=== PATIENT | male | born 1940 | race Caucasian/White ===

== ENCOUNTER → 2017-05-13 | Outpatient (CLI) | payer OTHER ==
[~2017-05-13] MED LIST: ACIPHEX20 MG PO; DIATRIZOATE MEGL/DIATRIZOA SOD 30 ML BTL PO ONE; IOPAMIDOL 370 MG/ML 200 ML INFUS..BTL INJ ONE; LIBRAX CAPSULE1 EACH PO; LISINOPRIL30 MG PO; LUPRON DEPOT45 MG INJ; METRONIDAZOLE500 MG PO; REGLAN10 MG PO; SODIUM CHLORIDE 0.9% 50ML 50 ML ONE; VSL#3 CAPSULE1 EACH PO
[2017-05-13 12:21] LABS: BLOOD UREA NITROGEN 11 mg/dL (7-26); BUN/CREATININE RATIO 13 (6-25); CREATININE, SERUM 0.84 mg/dL (0.72-1.25); EST GLOMERULAR FILTRATION RATE > 60 ML/MIN (60-)
--- NOTE | 2017-05-13 13:27 | Diagnostic Imaging Report ---
PROCEDURE:CT ABDOMEN AND PELVIS WITH CONTRAST COMPARISON:None. INDICATIONS:Hiatal hernia; umbilical hernia repair with mesh. Diverticulitis. TECHNIQUE: Routine protocol Volumetric CT abdomen and pelvis after administration of 100 mL Isovue-370 intravenous contrast 900 mL dilute positive enteric contrast. Multiplanar reformatted images. DLP: 770.59 FINDINGS: Clear lung bases. No pleural effusions. Normal heart size. Liver: Diffuse low-attenuation; mid clavicular craniocaudal span 14.3 cm. Gallbladder: Cholecystectomy. The bile duct dilation. Pancreas: Normal Spleen: Normal Adrenal glands: Normal Kidneys: Low-attenuation cysts bilaterally, the largest on the right measuring 2 cm in diameter and on the left 2.1 cm. Otherwise, normal Ureters and urinary bladder: Normal Prostate seminal vesicles: Prostate brachytherapy seeds. Bowel: Normal caliber. Small sliding-type hiatal hernia. Normal appendix. Normal sigmoid. Peritoneum: Normal Vasculature: Normal caliber. Moderate atherosclerosis of the abdominal aorta with mild calcification of the common iliac arteries. Lymph nodes: Normal Skeleton: Intact. Multilevel degenerative disc disease, most notable at L5-S1 L5-S1 with near complete loss of disc space height. Soft tissues: Unremarkable. CONCLUSION: 1. Hepatic steatosis. 2. No evidence of diverticulosis/diverticulitis. 3. Small sliding-type hiatal hernia. Dictated by: Shyam Francisco M.D. on 05/13/2017 at 13:36 Electronically approved by: Shyam Francisco M.D. on 05/13/2017 at 13:36
== END ==
LOC: CT 11:24
PROVIDERS: ATTEND Internal Medicine Gastroenterology
DX: R10.32 Left lower quadrant pain (principal)
CPT/HCPCS: 36415; 74177; 82565; 84520; Q9967

== ENCOUNTER → 2017-08-25 | Outpatient (CLI) | payer OTHER ==
[~2017-08-25] MED LIST changes: -DIATRIZOATE MEGL/DIATRIZOA SOD 30 ML BTL PO ONE; -IOPAMIDOL 370 MG/ML 200 ML INFUS..BTL INJ ONE; -SODIUM CHLORIDE 0.9% 50ML 50 ML ONE
--- NOTE | 2017-08-25 09:23 | Diagnostic Imaging Report ---
TECHNIQUE: Magnetic resonance imaging of the right femur was performed WITHOUT injected contrast. HISTORY: Pain COMPARISON: None available. FINDINGS: Bone marrow signal normal. No edema, fracture, or osteonecrosis. Muscle signal normal. No edema or atrophy. No soft tissue mass. Normal appearance of the sciatic nerve. IMPRESSION: Unremarkable MRI of the right femur/thigh. Signed by: Dr. Mejia Boothe M.D. on 08/25/2017 9:19 AM
== END ==
LOC: MRI 07:11
PROVIDERS: ATTEND Specialist
DX: M79.604 Pain in right leg (principal)

== ENCOUNTER → 2018-09-15 | Outpatient (CLI) | payer OTHER ==
--- NOTE | 2018-09-15 18:25 | Diagnostic Imaging Report ---
Bone Scan, delayed phase INDICATION: Prostate cancer diagnosed in 2015. Low back pain. COMPARISON: Prior bone scan 03/21/2017 REPORT: Approximately 3 hours following intravenous administration of 25 mCi of Tc-99m MDP, delayed total body images in the anterior and posterior projections and selected spot images were obtained. Few foci of very mildly increased tracer are seen in the cervical and thoracic spine, consistent with degenerative change and unchanged from prior study of 03/21/2017. New focus of moderate to markedly increased tracer is seen in the midline of L5. Otherwise, distribution of tracer activity is unremarkable throughout the skeletal system. No abnormal accumulation of tracer is seen in the soft tissues or urinary tract. IMPRESSION: New acute osteoblastic lesion in the midline of L5 is nonspecific in appearance and could be due to a posttraumatic, inflammatory (degenerative) or neoplastic process. Absence of the lesion on the prior bone scan slightly favors solitary bone metastasis but correlation with CT is indicated. Signed by: Dr. Lillie Patterson M.D. on 09/15/2018 6:21 PM
== END ==
LOC: NM 07:56
PROVIDERS: ATTEND Family Medicine
DX: Z85.46 Personal history of malignant neoplasm of prostate (principal)
CPT/HCPCS: 78306; A9503

== ENCOUNTER → 2019-02-13 | Outpatient (CLI) | payer OTHER ==
--- NOTE | 2019-02-13 09:43 | Diagnostic Imaging Report ---
MRI of the right shoulder without contrast. History: Shoulder pain. Decreased range of motion. Pain not responding to conservative management Comparison: None Technique: Coronal PD FS, sagital PD FS, and axial PD and PD FS. Findings: Rotator cuff: Rotator cuff tendinosis with small full-thickness tear involving the anterior fibers of the supraspinatus tendon at the humeral insertion site. There is minimal retraction of the torn fibers and mild supraspinatus muscle atrophy. Additionally, there is infraspinatus and subscapularis tendinosis. The teres minor tendon is intact. Osseous acromion complex: Type II acromion with mild lateral downsloping. Moderate degenerative arthrosis at the acromioclavicular joint with undersurface spurring and narrowing of the supraspinatus tendon outlet. Mild subacromial/subdeltoid bursitis. Glenohumeral joint: Degeneration and fraying of the labrum. The articular cartilage surfaces are slightly thin. The humeral head is well-seated in the glenoid fossa. Small effusion and mild synovitis in the rotator interval and subcoracoid space. Biceps tendon: Intra-articular biceps tendinosis with fraying at the biceps anchor. Other findings: Negative for muscle denervation or osseous fracture. Impression: Rotator cuff: Rotator cuff tendinosis with small full-thickness tear involving the anterior fibers of the supraspinatus tendon at the humeral insertion site. There is minimal retraction of the torn fibers and mild supraspinatus muscle atrophy. Moderate degenerative arthrosis at the acromioclavicular joint with undersurface spurring and narrowing of the supraspinatus tendon outlet. Mild subacromial/subdeltoid bursitis. Intra-articular biceps tendinosis with fraying at the biceps anchor. Signed by: Dr. Toney Doll M.D. on 02/13/2019 9:39 AM
== END ==
LOC: MRI 07:42
PROVIDERS: ATTEND Family Medicine
DX: M25.511 Pain in right shoulder (principal); M54.5 Low back pain

== ENCOUNTER → 2019-03-30 | Outpatient (CLI) | payer OTHER ==
--- NOTE | 2019-03-30 13:38 | Diagnostic Imaging Report ---
Examination: MRI SPINE LUMBAR WO CONTRAST History: Low back pain radiating to mid back and front of the right lower extremity with associated numbness of the foot. Comparison studies: Lumbar spine MRI performed May 02, 2017. Technique: Sagittal, coronal and axial T2 , sagittal T1 and STIR; axial spin density oblique. Findings: Number of lumbar vertebral bodies: Five. Alignment: Normal lordosis. No scoliosis. Soft tissues: In the bilateral kidneys, there are T2 hyperintense lesions, representing cysts. The largest is seen in the the mid to lower pole of the right kidney and measures 2.5 cm. Posterior paraspinal soft tissues and muscles: No abnormality. Lower thoracic cord: Normal in signal and morphology. The tip of the conus is at L1. Cauda equina: No masses. No arachnoiditis. Vertebrae: No fractures, infection or neoplasm. Type II Modic changes of the superior and inferior endplates of L2, L3, L4 and L5 with complete fatty marrow replacement of the sacrum. Degenerative changes: L1-L2: No abnormalities. L2-L3: Asymmetric to the left disc bulge and mild bilateral facet arthropathy result in mild bilateral neural foraminal narrowing and mild canal stenosis. L3-L4: Diffuse disc bulge, mild ligamentum flavum thickening and mild bilateral facet arthropathy result in mild bilateral neural foraminal narrowing and severe canal stenosis. L4-L5: Prior right laminotomy. Diffuse disc bulge and mild bilateral facet arthropathy result in moderate right and mild left neural foraminal narrowing. No canal stenosis. L5-S1: Diffuse disc bulge and mild bilateral facet arthropathy result in mild bilateral neural foraminal narrowing. No canal stenosis. IMPRESSION: Degenerative changes from L2-L3 through L5-S1 with interval right decompressive laminectomy at L4-L5 when compared to prior lumbar spine MRI performed May 02, 2017. Interval progression of degenerative canal stenosis at L3-L4, now severe. Mild canal stenosis at L2-L3. Signed by: Dr. Rashmi Romero M.D. on 03/30/2019 1:35 PM
== END ==
LOC: MRI 07:40
PROVIDERS: ATTEND Family Medicine
DX: M54.5 Low back pain (principal)
CPT/HCPCS: 72148

== ENCOUNTER 2019-07-13 08:46 | Emergency (ER) | payer OTHER ==
[~2019-07-13] VITALS: Ht 185.4 cm; Wt 116.1 kg
--- OUTSIDE RECORDS SUMMARY | 2019-07-13 08:49 | XMS REPORT ---
[facility] Address Unknown Phone Unavailable Care Team Providers Care Clinical Engineering Director Name Role Phone FER HORNER Unavailable Unavailable JHON HORNER Unavailable Unavailable Randee RECINOS Unavailable Unavailable PRETTY FULLER Unavailable Unavailable Viraj SOTO Unavailable Unavailable Problems This patient has no known problems. Allergies, Adverse Reactions, Alerts This patient has no known allergies or adverse reactions. Medications This patient has no known medications. Results Test Description Test Time Test Comments Text Results Atomic Results Result Comments MRI SPINE LUMBAR WO 2019-03-30 13:27:00 [place] [address] Patient Name: JL BRAR MR #: [id number] : 1940 Age/Sex: 78/M Req #: [id number] Adm Physician: Ordered by: FER HORNER DO Report #: [id number] Location: MRI Room/Bed: Procedure: [id number] MRI/MRI SPINE LUMBAR WO Exam Date: Exam Time: REPORT STATUS: Signed Examination: MRI SPINE LUMBAR WO CONTRAST History: Low back pain radiating to mid back and front of the right lower extremity with associated numbness of the foot. Comparison studies: Lumbar spine MRI performed May 02, 2017. Technique: Sagittal, coronal and axial T2 , sagittal T1 and STIR; axial spin density oblique. Findings: Number of lumbar vertebral bodies: Five. Alignment: Normal lordosis. No scoliosis. Soft tissues: In the bilateral kidneys, there are T2 hyperintense lesions, representing cysts. The largest is seen in the the mid to lower pole of the right kidney and measures 2.5 cm. Posterior paraspinal soft tissues and muscles: No abnormality. Lower thoracic cord: Normal in signal and morphology. The tip of the conus is at L1. Cauda equina: No masses. No arachnoiditis. Vertebrae: No fractures, infection or neoplasm. Type II Modic changes of the superior and inferior endplates of L2, L3, L4 and L5 with complete fatty marrow replacement of the sacrum. Degenerative changes: L1-L2: No abnormalities. L2-L3: Asymmetric to the left disc bulge and mild bilateral facet arthropathy result in mild bilateral neural foraminal narrowing and mild canal stenosis. L3-L4: Diffuse disc bulge, mild ligamentum flavum thickening and mild bilateral facet arthropathy result in mild bilateral neural foraminal narrowing and severe canal stenosis. L4- L5: Prior right laminotomy. Diffuse disc bulge and mild bilateral facet arthropathy result in moderate right and mild left neural foraminal narrowing. No canal stenosis. L5-S1: Diffuse disc bulge and mild bilateral facet arthropathy result in mild bilateral neural foraminal narrowing. No canal stenosis. IMPRESSION: Degenerative changes from L2-L3 through L5-S1 with interval right decompressive laminectomy at L4-L5 when compared to prior lumbar spine MRI performed May 02, 2017. Interval progression of degenerative canal stenosis at L3-L4, now severe. Mild canal stenosis at L2-L3. Signed by: Dr. Beto Romero M.D. on 03/30/2019 1:35 PM Dictated By: BETO MAYS MD 133 Transcribed By: JOSE on 03/30/19 1334 COPY TO: FER HORNER DO MRI SHOULDER RIGHT WO 2019-02-13 09:36:[address] [address] Patient Name: JL BRAR MR #: [id number] : 1940 Age/Sex: 78/M Req #: [id number] Adm Physician: Ordered by: FER HORNER DO Report #: [id number] Location: MRI Room/Bed: Procedure: [id number] MRI/MRI SHOULDER RIGHT WO Exam Date: Exam Time: REPORT STATUS: Signed MRI of the right shoulder without contrast. History: Shoulder pain. Decreased range of motion. Pain not responding to conservative management Comparison: None Technique: Coronal PD FS, sagital PD FS, and axial PD and PD FS. Findings: Rotator cuff: Rotator cuff tendinosis with small full-thickness tear involving the anterior fibers of the supraspinatus tendon at the humeral insertion site. There is minimal retraction of the torn fibers and mild supraspinatus muscle atrophy. Additionally, there is infraspinatus and subscapularis tendinosis. The teres minor tendon is intact. Osseous acromion complex: Type II acromion with mild lateral downsloping. Moderate degenerative arthrosis at the acromioclavicular joint with undersurface spurring and narrowing of the supraspinatus tendon outlet. Mild subacromial/subdeltoid bursitis. Glenohumeral joint: Degeneration and fraying of the labrum. The articular cartilage surfaces are slightly thin. The humeral head is well-seated in the glenoid fossa. Small effusion and mild synovitis in the rotator interval and subcoracoid space. Biceps tendon: Intra-articular biceps tendinosis with fraying at the biceps anchor. Other findings: Negative for muscle dener vation or osseous fracture. Impression: Rotator cuff: Rotator cuff tendinosis with small full-thickness tear involving the anterior fibers of the supraspinatus tendon at the humeral insertion site. There is minimal retraction of the torn fibers and mild supraspinatus muscle atrophy. Moderate degenerative arthrosis at the acromioclavicular joint with undersurface spurring and narrowing of the supraspinatus tendon outlet. Mild subacromial/subdeltoid bursitis. Intra-articular biceps tendinosis with fraying at the biceps anchor. Signed by: Dr. Joleen Doll M.D. on 9:39 AM Dictated By: JOLEEN DOLL MD, MD 8 Transcribed By: JOSE on 02/13/19938 COPY TO: FER HORNER DO BONE and/or JOINT WHOLE BODY 2018-09-15 18:14:00 [place] [address] Patient Name: JL BRAR MR #: [id number] : 1940 Age/Sex: 78/M Req #: [id number] Adm Physician: Ordered by: HORNER ANDREW DO Report #: [id number] Location: [place] Room/Bed: Procedure: [id number] NM/BONE and/or JOINT WHOLE BODY Exam Date: 09/15/18 Exam Time: 0840 REPORT STATUS: Signed Bone Scan, delayed phase INDICATION: Prostate cancer diagnosed in 2014. Low back pain. COMPARISON: Prior bone scan 03/21/2017 REPORT: Approximately 3 hours following intravenous administration of 25 mCi of Tc-99m MDP, delayed total body images in the anterior and posterior projections and selected spot images were obtained. Few foci of very mildly increased tracer are seen in the cervical and thoracic spine, consistent with degenerative change and unchanged from prior study of 03/21/2017. New focus of moderate to markedly increased tracer is seen in the midline of L5. Otherwise, distribution of tracer activity is unremarkable throughout the skeletal system. No abnormal accumulation of tracer is seen in the soft tissues or urinary tract. IMPRESSION: New acute osteoblastic lesion in the midline of L5 is nonspecific in appearance and could be due to a posttraumatic, inflammatory (degenerative) or neoplastic process. Absence of the lesion on the prior bone scan slightly favors solitary bone metastasis but correlation with CT is indicated. Signed by: Dr. Arsen Patterson M.D. on 09/15/2018 6:21 PM Dictated By: ARSEN PATTERSON MD 20 Transcribed By: JOSE on 09/15/181820 COPY TO: JHON HORNER DO MRI FEMUR RIGHT WO [place] [address] Patient Name: JL BRAR MR #: [id number] : 1940 Age/Sex: 77/M Req #: [id number] Adm Physician: Ordered by: RYLEE RECINOS MD Report #: [id number] Location: MRI Room/Bed: Procedure: [id number] MRI/MRI FEMUR RIGHT WO Exam Date: Exam Time: REPORT STATUS: Signed TECHNIQUE: Magnetic resonance imaging of the right femur was performed WITHOUT injected contrast. HISTORY: Pain COMPARISON: None available. FINDINGS: Bone marrow signal normal. No edema, fracture, or osteonecrosis. Muscle signal normal. No edema or atrophy. No soft tissue mass. Normal appearance of the sciatic nerve. IMPRESSION: Unremarkable MRI of the right femur/thigh. Signed by: Dr. Jhon Scruggs M.D. on 08/25/2017 9:19 AM Dictated By: JHON SCRUGGS MD 8 Transcribed By: JOSE on 08/25/17918 COPY TO: RYLEE RECINOS MD CT ABDOMEN/PELVIS W [facility] [address] [place] [address] Patient Name: JL BRAR MR #: [id number] : 1940 Age/Sex: 77/M Req #: [id number] Adm Physician: Ordered by: PRETTY FULLER MD Report #: [id number] Location: CT Room/Bed: Procedure: [id number] CT/CT ABDOMEN/PELVIS W Exam Date: 05/13/17 Exam Time: 1200 REPORT STATUS: Signed PROCEDURE: CT ABDOMEN AND PELVIS WITH CONTRAST COMPARISON: None. INDICATIONS: Hiatal hernia; umbilical hernia repair with mesh. Diverticulitis. TECHNIQUE: Routine protocol Volumetric CT abdomen and pelvis after administration of 100 mL Isovue-370 intravenous contrast 900 mL dilute positive enteric contrast. Multiplanar reformatted images. DLP: 770.59 FINDINGS: Clear lung bases. No pleural effusions. Normal heart size. Liver: Diffuse low-attenuation; mid clavicular craniocaudal span 14.3 cm. Gallbladder: Cholecystectomy. The bile duct dilation. Pancreas: Normal Spleen: Normal Adrenal glands: Normal Kidneys: Low-attenuation cysts bilaterally, the largest on the right measuring 2 cm in diameter and on the left 2.1 cm. Otherwise, normal Ureters and urinary bladder: Normal Prostate seminal vesicles: Prostate brachytherapy seeds. Bowel: Normal caliber. Small sliding-type hiatal hernia. Normal appendix. Normal sigmoid. Peritoneum: Normal Vasculature: Normal caliber. Moderate atherosclerosis of the abdominal aorta with mild calcification of the common iliac arteries. Lymph nodes: Normal Skeleton: Intact. Multilevel degenerative disc disease, most notable at L5-S1 L5-S1 with near complete loss of disc space height. Soft tissues: Unremarkable. CONCLUSION: 1. Hepatic steatosis. 2. No evidence of diverticulosis/diverticulitis. 3. Small sliding-type hiatal hernia. Dictated by: Jignesh Francisco M.D. on 05/13/2017 at 13:36 Electronically approved by: Jignesh Francisco M.D. on 05/13/2017 at 13:36 Dictated By: JIGNESH FRANCISCO MD 1336 Transcribed By: MAE on 05/13/17 1336 COPY TO: PRETTY FULLER MD MRI SPINE LUMBAR WO [place] [address] Patient Name: JL BRAR MR #: [id number] : 1940 Age/Sex: 77/M Req #: [id number] Adm Physician: Ordered by: FER HORNER DO Report #: [id number] Location: MRI Room/Bed: Procedure: [id number] MRI/MRI SPINE LUMBAR WO Exam Date: 05/02/17 Exam Time: 0815 REPORT STATUS: Signed EXAMINATION: MRI of the lumbar spine without contrast HISTORY: Low back pain radiating to the right lower extremity for the last 4 months, history of prostate cancer. COMPARISON: Bone scan on 03/21/2017 TECHNIQUE: Sagittal T1, T2, STIR; axial T2 and proton density. FINDINGS: It is assumed that there are 5 lumbar vertebrae. Curvature/Alignment: Normal lordosis. Vertebrae: No evidence of recent fracture, infection, or neoplasm. Prominent fatty replacement of the partially visualized sacrum and iliac bones, likely from prior radiation therapy. Chronic endplate degenerative changes at L2-L3 and L5-S1. Small hemangiomas in the L2 and L4 vertebral bodies. Conus: Normal, terminating at L1-L2 Cauda equina: Unremarkable. Lower thoracic: Mild symmetric disc bulge and facet art hrosis at T11-T12 with mild Canal and foraminal stenosis. Paraspinal soft tissues: Partially visualized T2 hyperintense probable cyst in both kidneys Degenerative changes: L1-L2: Unremarkable. L2-L3: Mild symmetric disc bulge, ligamenta flava thickening and facet arthrosis. Mild canal and left foraminal stenoses. L3-L4: Mild symmetric disc bulge, ligamenta flava thickening and facet arthrosis. Mild to moderate spinal canal stenosis. No significant foraminal stenosis. L4-L5: Symmetric disc bulge, ligamenta flava thickening and facet arthrosis. Severe spinal canal and mild foraminal stenoses. Possible small synovial cyst along the right flavum ligament contributes to canal narrowing L5-S1: Disc osteophyte and facet arthrosis. Mild narrowing of the lateral recesses and foramina. Sacroiliac joints: Mild degenerative changes in the partially visualized segments. IMPRESSION: 1. No evidence of metastatic disease or pathologic fractures. 2. Severe degenerative spinal canal and mild foraminal stenosis at L4-5. 3. Mild degenerative canal stenosis at L2-L3 and L3-L4. 4. Mild degenerative foraminal stenosis on the left at L2-L3 and bilaterally at L5-S1 Signed by: Dr. Evaristo Wagner M.D. on 05/02/2017 10:59 AM Dictated By: EVARISTO WAGNER MD 105 Transcribed By: JOSE on 05/02/17 105 COPY TO: FER HORNER DO BONE and/or JOINT WHOLE BODY [place] [address] Patient Name: JL BRAR MR #: [id number] : 1940 Age/Sex: 76/M Req #: [id number] Adm Physician: Ordered by: GABRIELLE SOTO MD Report #: [id number] Location: [place] Room/Bed: Procedure: [id number] NM/BONE and/or JOINT WHOLE BODY Exam Date: 03/21/17 Exam Time: 1100 REPORT STATUS: Signed Bone Scan, delayed phase INDICATION: Prostate cancer; restaging COMPARISON: None recent REPORT: Approximately 3 hours following intravenous administration of 27.5 mCi of Tc-99m MDP, delayed total body images in the anterior and posterior projections and selected spot images were obtained. Distribution of tracer activity is unremarkable throughout the skeletal system. No abnormal accumulation of tracer is seen in the soft tissues or urinary tract. IMPRESSION: No scan evidence of metastatic bone disease. Signed by: Dr. Arsen Patterson M.D. on 03/21/2017 9:29 PM Dictated By: ARSEN PATTERSON MD 28 Transcribed By: JOSE on 03/21/172128 COPY TO: GABRIELLE SOTO MD
[2019-07-13] MEDS ORDERED: CYCLOBENZAPRINE HCL 10 MG TAB ONE (09:02)
[2019-07-13] MEDS ORDERED: KETOROLAC TROMETHAMINE 30 MG/ML VIAL ONE (09:02)
[2019-07-13] MEDS ORDERED: CYCLOBENZAPRINE HCL 10 MG TAB PO ONE (09:15)
[2019-07-13] MEDS ORDERED: KETOROLAC TROMETHAMINE 60 MG/2 ML VIAL IM ONE (09:15)
--- NOTE | 2019-07-13 10:48 | Diagnostic Imaging Report ---
History: Neck pain, torticollis, neck stiffness Comparison studies: None Technique: Axial images were obtained from the skull base to the thoracic inlet. Coronal and sagittal images reconstructed from the axial data. Dose modulation, iterative reconstruction, and/or weight based adjustment of the mA/kV was utilized to reduce the radiation dose to as low as reasonably achievable. Radiation dose: Total DLP: 484.18 mGy*cm. Estimated effective dose: DLP x 0.015 Intravenous contrast: None Findings: Evaluation of the neck is limited due to the absence of intravenous contrast. In spite of this limitation, Soft tissues: No mass or other gross abnormalities. Lymph nodes: No enlarged lymph nodes. Vessels: Cannot adequately evaluate. Scattered calcified atherosclerosis with moderate calcified plaque in the bilateral carotid bulbs and carotid siphons. Glands (thyroid, parotid and submandibular): Normal in size and symmetric. No masses. Orbits: Normal-appearing lenses are not identified and there may be bilateral intraocular lens replacements. No other abnormalities. Paranasal sinuses: Clear aside from minimal mucosal thickening in the left maxillary sinus. Temporal bones: No abnormalities. Clear middle ear mastoid cavities: Skull base and facial bones: Intact. Cervical spine and included upper thoracic spine. Chronic anterior wedge deformity at T1 and chronic depression deformities of the T2 and T3 endplate with minimal height loss. No acute fracture. Degenerated disc mild loss of disc height from C3 to C7. Mild multilevel disc degeneration present in the included upper thoracic spine. Mild canal stenosis at C3-C4 due to a disc osteophyte complex. Multilevel uncovertebral and facet arthrosis result in multilevel foraminal stenosis which is mild left at C2-C3, moderate bilaterally at C3-C4, C4-C5 and at C5-C6 and moderate left and mild right at C6-C7. IMPRESSION: 1. No acute abnormalities. 2. Multilevel degenerative changes in the cervical spine as described. Signed by: Dr. Leo Hernandez M.D. on 07/13/2019 10:45 AM
[2019-07-13 11:00] VITALS: BP 152/86
== END 2019-07-13 11:26 | disposition home or self-care (01) ==
LOC: ER 08:46
DX: M47.812 Spondylosis without myelopathy or radiculopathy, cervical region (principal)
CPT/HCPCS: 70490; 99283; J1885

== ENCOUNTER → 2022-10-04 | Day surgery (SDC) | payer MEDICARE, OTHER ==
[2022-10-01 09:55] LABS: BASOPHILS # (AUTO) 0.1 (0.0-0.1); BASOPHILS % 0.5 % (0.0-1.0); EOSINOPHILS # (AUTO) 0.3 (0.0-0.4); EOSINOPHILS % 3.2 % (0.0-6.0); LYMPHOCYTES % 20.2 % (18.0-39.1); MEAN CORPUSCULAR HEMOGLOBIN 32.7 pg (28-32); MEAN CORPUSCULAR HGB CONC 33.3 g/dL (31-35); MEAN CORPUSCULAR VOLUME 98.1 fL (81-99); MONOCYTES # (AUTO) 0.8 (0.2-0.8); MONOCYTES % 8.3 % (4.4-11.3); NEUTROPHILS # (AUTO) 6.6 (2.1-6.9); NEUTROPHILS % 67.4 % (38.7-80.0); PLATELET COUNT 202 x10e3/uL (140-360); RED BLOOD COUNT 3.67 x10e6/uL (4.3-5.7); RED CELL DISTRIBUTION WIDTH 12.6 % (11.7-14.4)
[~2022-10-04] MED LIST changes: +ASPIRIN EC81 MG PO; +ATORVASTATIN CA20 MG PO; +CALTRATE 600 W1 EACH PO; +CO Q-10 100 MG1 EACH PO; +FENTANYL CITRATE/PF 100MCG/2 ML INJ ONE; +FEROSUL325 MG PO; +LIDOCAINE HCL 2% LOCAL INJ 5 ML SDV VIAL INJ ONE; +METOPROLOL TART25 MG PO; +MULTI-VITAMIN1 EACH PO; +OSTEO BI-FLEX1 EAC4 PO; +POVIDONE IODINE 0.05% 0.05 % ML PO ONE; +PREVAGEN PO; +PROBIOTIC & AC1 EACH PO; +PROPOFOL IV EMULSION 10 MG/ML 20 ML VIAL ONE
[2022-10-04 11:54] VITALS: TEMP 97.1
[2022-10-04 12:20] VITALS: BP 129/72; PULSE 66; RESP 16; O2SAT 97
== END | disposition home or self-care (01) ==
LOC: OR 08:40
PROVIDERS: ATTEND Internal Medicine Gastroenterology
DX: K22.70 Barrett's esophagus without dysplasia (principal); K31.7 Polyp of stomach and duodenum; K29.70 Gastritis, unspecified, without bleeding; K31.A11 Gastric intestinal metaplasia without dysplasia, involving the antrum; K75.81 Nonalcoholic steatohepatitis (NASH); I10 Essential (primary) hypertension; I48.91 Unspecified atrial fibrillation; I25.810 Atherosclerosis of coronary artery bypass graft(s) without angina pectoris; E78.5 Hyperlipidemia, unspecified; E11.9 Type 2 diabetes mellitus without complications; Z88.0 Allergy status to penicillin; Z88.8 Allergy status to other drugs, medicaments and biological substances; Z01.810 Encounter for preprocedural cardiovascular examination; Z01.812 Encounter for preprocedural laboratory examination; Z79.82 Long term (current) use of aspirin; Z79.899 Other long term (current) drug therapy; Z68.32 Body mass index [BMI] 32.0-32.9, adult; Z86.73 Personal history of transient ischemic attack (TIA), and cerebral infarction without residual deficits; Z87.891 Personal history of nicotine dependence; Z95.810 Presence of automatic (implantable) cardiac defibrillator; Z85.46 Personal history of malignant neoplasm of prostate; Z92.3 Personal history of irradiation
CPT/HCPCS: 36415; 43239; 85025; 88304; 88305; 88312; 88342; 93005; J2001

== ENCOUNTER → 2023-12-28 | Outpatient (REF) | payer MEDICARE, OTHER ==
[~2023-12-28] MED LIST changes: +DIPHENHYDRAMINE HCL 25 MG CAP ONE; -FENTANYL CITRATE/PF 100MCG/2 ML INJ ONE; -LIDOCAINE HCL 2% LOCAL INJ 5 ML SDV VIAL INJ ONE; -POVIDONE IODINE 0.05% 0.05 % ML PO ONE; -PROPOFOL IV EMULSION 10 MG/ML 20 ML VIAL ONE
== END ==
LOC: US 09:25
PROVIDERS: ATTEND Nurse Practitioner
DX: R10.9 Unspecified abdominal pain (principal)
CPT/HCPCS: 76700; 76856

== ENCOUNTER → 2024-08-16 | Outpatient (REF) | payer MEDICARE, OTHER ==
[~2024-08-16] MED LIST changes: +AMLODIPINE BESYL5 MG PO; +ARANESP200 MCG/1 INJ; +COLESTIPOL HCL1 GM PO; +DICYCLOMINE HCL20 MG PO; -DIPHENHYDRAMINE HCL 25 MG CAP ONE; +GARLIC1000 MG PO; +OLMESARTAN-HCT1 EAC2 PO; +TYLENOL325 MG PO
[2024-08-16 08:48] LABS: BASOPHILS # (AUTO) 0.1 (0.0-0.1); BASOPHILS % 0.6 % (0.0-1.0); EOSINOPHILS # (AUTO) 0.6 (0.0-0.4); EOSINOPHILS % 4.6 % (0.0-6.0); HEMATOCRIT 30.3 % (38.2-49.6); HEMOGLOBIN 10.3 g/dL (14.0-18.0); LYMPHOCYTES # (AUTO) 1.4 (1.0-3.2); LYMPHOCYTES % 11.4 % (18.0-39.1); MEAN CORPUSCULAR HEMOGLOBIN 33.1 pg (28-32); MEAN CORPUSCULAR VOLUME 97.4 fL (81-99); MONOCYTES # (AUTO) 0.9 (0.2-0.8); MONOCYTES % 7.5 % (4.4-11.3); NEUTROPHILS # (AUTO) 8.9 (2.1-6.9); NEUTROPHILS % 75.6 % (38.7-80.0); PLATELET COUNT 220 x10e3/uL (140-360); RED BLOOD COUNT 3.11 x10e6/uL (4.3-5.7); WHITE BLOOD COUNT 11.83 x10e3/uL (4.8-10.8)
== END ==
LOC: RAD 08:40 → EDSTATUS 08-22 07:30
PROVIDERS: ATTEND Internal Medicine Gastroenterology
DX: Z01.810 Encounter for preprocedural cardiovascular examination (principal); Z01.812 Encounter for preprocedural laboratory examination; R19.7 Diarrhea, unspecified; R10.9 Unspecified abdominal pain; R14.0 Abdominal distension (gaseous)
CPT/HCPCS: 36415; 85025; 93005